=== PATIENT | female | born 1955 | race Caucasian/White ===

== ENCOUNTER → 2024-02-29 13:52 | Outpatient (REF) | payer MEDICARE, OTHER, SELFPAY | LOC: WDC 13:52 | PROVIDERS: ATTENDING PHYSICIAN Family Medicine | DX: Z12.31 Encounter for screening mammogram for malignant neoplasm of breast (principal); M85.89 Other specified disorders of bone density and structure, multiple sites | CPT/HCPCS: 77063; 77067; 77080 ==

== ENCOUNTER → 2025-06-20 13:29 | Outpatient (REF) | payer MEDICARE, OTHER, SELFPAY | LOC: WDC 13:29 | PROVIDERS: ATTENDING PHYSICIAN Obstetrics & Gynecology; FAMILY PHYSICIAN Family Medicine | DX: Z12.31 Encounter for screening mammogram for malignant neoplasm of breast (principal) | CPT/HCPCS: 77063; 77067 ==